=== PATIENT | female | born 1960 | race Caucasian/White ===

== ENCOUNTER → 2021-09-05 | Outpatient (CLI) | payer BC ==
[2021-09-05 16:45] LABS: BASO # 0.06 K/mm3 (0.02-0.10); EOS # 0.17 K/mm3 (0.04-0.40); EOS % 1.8 % (1.0-5.0); HEMATOCRIT 49.1 % (37.0-47.0); HEMOGLOBIN 15.7 g/dL (12.5-16.0); MEAN CELL VOLUME 93 fl (78-100); MEAN CORPUSCULAR HEMOGLOBIN 30 pg (27-31); MEAN CORPUSCULAR HGB CONC 32 g/dL (33-37); MEAN PLATELET VOLUME 11.1 fl (7.4-10.4); MONO # 0.49 K/mm3 (0.20-0.80); NEU # 4.83 K/mm3 (1.40-6.50); PLATELET COUNT 202 K/mm3 (130-400); WHITE BLOOD COUNT 9.3 K/mm3 (4.8-10.8)
[2021-09-05 17:29] LABS: ALBUMIN 4.4 g/dL (3.5-5.0)
[2021-09-05 17:30] LABS: CALCIUM 9.8 mg/dL (8.3-10.5)
[2021-09-05 17:31] LABS: TOTAL PROTEIN 7.3 g/dL (6.4-8.3)
[2021-09-05 17:33] LABS: TOTAL BILIRUBIN 0.7 mg/dL (0.2-1.2)
== END ==
LOC: LAB 16:31 → RAD 16:31
PROVIDERS: Family Medicine
DX: Z00.00 Encounter for general adult medical examination without abnormal findings (principal); M17.11 Unilateral primary osteoarthritis, right knee; E78.5 Hyperlipidemia, unspecified